=== PATIENT | male | born 1980 | race Caucasian/White ===

== ENCOUNTER → 2019-12-27 | Outpatient (CLI) | payer BC ==
[~2019-12-27] MED LIST: ADVIL200 MG PO; CLARITIN 1010 MG/TAB PO; MULTI VITAMINS1 TAB PO; NASACORT AQ N16.5 GM NS; NORCO 325 MG-7.1 TAB PO; OMEGA-3 1000 MG1 CAP PO
== END ==
LOC: COL.RAD 08:27
DX: E87.8 Other disorders of electrolyte and fluid balance, not elsewhere classified (principal); G36.0 Neuromyelitis optica [Devic]
CPT/HCPCS: A9585

== ENCOUNTER 2019-12-30 15:40 | Outpatient (RCR) | payer BC ==
[~2019-12-30] VITALS: Ht 170.2 cm; Wt 79.8 kg
[~2019-12-30 15:40] MED LIST changes: -ADVIL200 MG PO; -MULTI VITAMINS1 TAB PO; -OMEGA-3 1000 MG1 CAP PO
[2019-12-31] MEDS ORDERED: OMEGA-3 1000 MG1 CAP PO (16:19)
[2019-12-31] MEDS ORDERED: MULTI VITAMINS1 TAB PO (16:20)
[2019-12-31] MEDS ORDERED: ADVIL200 MG PO (16:20)
[2019-12-31 16:35] VITALS: BP 126/82; PULSE 90; TEMP 98.5
[2020-01-01] MEDS ORDERED: PREDNISONE20 MG PO (16:03)
[2020-01-01 17:37] VITALS: BP 121/78; PULSE 70; TEMP 98.3
== END 2020-01-01 17:49 | disposition home or self-care (01) ==
LOC: EUO 15:40
DX: H46.9 Unspecified optic neuritis (principal)
CPT/HCPCS: J2930; J7050; J7060

== ENCOUNTER → 2020-09-01 | Outpatient (CLI) | payer BC ==
[~2020-09-01] MED LIST changes: +ADVIL200 MG PO; +MULTI VITAMINS1 TAB PO; +OMEGA-3 1000 MG1 CAP PO; +PREDNISONE20 MG PO
== END ==
LOC: COL.RAD 07:43
DX: R90.82 White matter disease, unspecified (principal)
CPT/HCPCS: A9585

== ENCOUNTER → 2022-02-16 | Outpatient (CLI) | payer BC | LOC: COL.RAD 09:29 | DX: G37.9 Demyelinating disease of central nervous system, unspecified (principal); R90.82 White matter disease, unspecified | CPT/HCPCS: A9575 ==

== ENCOUNTER → 2022-12-06 | Outpatient (CLI) | payer BC | LOC: COL.RAD 11:44 | DX: H46.9 Unspecified optic neuritis (principal) | CPT/HCPCS: A9575 ==